=== PATIENT | male | born 1945 | race African-American/Black ===

== ENCOUNTER 2018-01-14 08:38 | Outpatient (CLI) | payer OTHER | END 2018-01-14 19:00 | disposition home or self-care (01) | LOC: SNM 08:38 | PROVIDERS: ATTEND Orthopaedic Surgery Sports Medicine | DX: M79.651 Pain in right thigh (principal); M25.551 Pain in right hip; Z47.1 Aftercare following joint replacement surgery; Z96.641 Presence of right artificial hip joint | CPT/HCPCS: 78315; A9503 ==